=== PATIENT | male | born 1945 | race Caucasian/White ===

== ENCOUNTER 2017-06-06 14:15 | Emergency (ER) | payer MEDICARE ==
[~2017-06-06] VITALS: Ht 177.8 cm; Wt 84.7 kg
[2017-06-06 14:16] VITALS: BP 228/109; PULSE 73; RESP 18; TEMP 98.4; O2SAT 98
--- NOTE | 2017-06-06 14:35 | PD ---
HPI Chief Complaint: Injury Time Seen by Provider: 14:35 Travel History International Travel<30 days: No (109) Contact w/Intl Traveler<30days: No Traveled to known affect area: No History of Present Illness HPI 72 yo M complains of left wrist pain for about 1 day. Yesterday after using a long handled saw he developed pain which worsened overnight. Swelling and redness gradually increased. No fever. About 10 days prior his dog scratched the forearm of the left arm. Timing constant. Pt also notes incidental BP elevation. He has been compliant with metoprolol. PFSH Past Medical History Hx Anticoagulant Therapy: Yes (PLAVIX) Cerebrovascular Accident: Yes Social History Tobacco Use: No Allergies-Medications (Allergen,Severity, Reaction): Coded Allergies: No Known Allergies (Unverified , 06/06/17) Reported Meds & Prescriptions Reported Meds & Active Scripts Active Augmentin (Amoxicillin-Clavulanate) 875-125 Mg Tab 1 Tab PO BID 7 Days Reported Ketoconazole Topical 2% Cream 1 Applic TOPICAL DAILY Mupirocin Topical (Mupirocin) 2 % Oint 1 Applic TOPICAL BID Aspirin 81 Mg Chew 81 Mg CHEW DAILY Clopidogrel (Clopidogrel Bisulfate) 75 Mg Tab 75 Mg PO DAILY Benazepril (Benazepril HCl) 20 Mg Tab 20 Mg PO DAILY Omeprazole 20 Mg Tab 20 Mg PO DAILY Simvastatin 20 Mg Tab 20 Mg PO DAILY Metoprolol Tartrate 25 Mg Tab 25 Mg PO BID Review of Systems Except as stated in HPI: all other systems reviewed are Neg General / Constitutional: No: Fever Skin: Positive Lesions Physical Exam Narrative GENERAL: 72 yo M, WNWD, NAD SKIN: Warm and dry. HEAD: Atraumatic. Normocephalic. EYES: Pupils equal and round. No scleral icterus. No injection or drainage. ENT: No nasal bleeding or discharge. Mucous membranes pink and moist. NECK: Trachea midline. No JVD. CARDIOVASCULAR: Regular rate and rhythm. RESPIRATORY: No accessory muscle use. Clear to auscultation. Breath sounds equal bilaterally. GASTROINTESTINAL: Swelling, erythema, TTP about DRUJ and hand of LUE. 2+ radial artery pulse bilaterally. No gross deformity otherwise. MUSCULOSKELETAL: Extremities without clubbing, cyanosis, or edema. No obvious deformities. NEUROLOGICAL: Awake and alert. No obvious cranial nerve deficits. Motor grossly within normal limits. Five out of 5 muscle strength in the arms and legs. Normal speech. PSYCHIATRIC: Appropriate mood and affect; insight and judgment normal. Data Data Last Documented VS Vital Signs Date Time Temp Pulse Resp B/P (MAP) Pulse Ox O2 Delivery O2 Flow Rate FiO2 06/06/17 15:52 06/06/17 15:35 68 98 06/06/17 14:16 98.4 18 VS reviewed; repeat BP 197/97 Orders Orders Wrist, Complete (Gfs4cmt) (06/06/17 14:35) Ice/Cold Pack (06/06/17 14:35) Clindamycin (Cleocin) (06/06/17 14:45) Clonidine (Catapres) (06/06/17 14:45) MDM Medical Decision Making Medical Screen Exam Complete: Yes Emergency Medical Condition: Yes Differential Diagnosis cellulitis, gout, arthritis, abscess, osteomyelitis, fracture Narrative Course Last 24 hours Impressions Wrist X-Ray 06/06/17 1435 Signed Impressions: Service Date/Time: Tuesday, June 06, 2017 14:42 - CONCLUSION: Soft tissue swelling and degenerative changes are noted without obvious acute fracture. Marshall Mcneal MD Augmentin script. BP improved after clonidine. 197/97. Return precautions discussed. Diagnosis Primary Impression: Cellulitis Qualified Codes: L03.114 - Cellulitis of left upper limb Additional Impressions: Wrist sprain Qualified Codes: S63.502A - Unspecified sprain of left wrist, initial encounter Hypertension Qualified Codes: I10 - Essential (primary) hypertension Referrals: Primary Care Physician 2 days Additional Instructions: You have a choice when it comes to health care, and we are glad that you chose [facility]. Hopefully, we have met your expectations on today's visit. You are welcome to return to [facility] at any time, as we are committed to meeting the health care needs of our community. Med/Other Pt SpecificInfo: Prescription(s) given Scripts Amoxicillin-Clavulanate (Augmentin) 875-125 Mg Tab 1 TAB PO BID for Infection for 7 Days, #14 TAB 0 Refills Prov: John Britt MD 06/06/17 Disposition: 01 DISCHARGE HOME Condition: Stable John Britt MD Jun 06, 2017 14:35
[2017-06-06] MEDS ORDERED: KETO2CRE TOPICAL (14:42)
[2017-06-06] MEDS ORDERED: ASPI81CH CHEW (14:42)
[2017-06-06] MEDS ORDERED: METO25TA3 PO (14:42)
[2017-06-06] MEDS ORDERED: CLOP75TA PO (14:42)
[2017-06-06] MEDS ORDERED: SIMV20TA PO (14:42)
[2017-06-06] MEDS ORDERED: OMEP20TA PO (14:42)
[2017-06-06] MEDS ORDERED: MUPI2OIN TOPICAL (14:42)
[2017-06-06] MEDS ORDERED: BENA20TA PO (14:42)
[2017-06-06] MEDS ORDERED: cloNIDine HCL 0.1 MG TAB PO ONE (14:45)
[2017-06-06] MEDS ORDERED: CLINDAMYCIN 150 MG CAP PO ONE (14:45)
--- NOTE | 2017-06-06 15:06 | RADRPT ---
EXAM DATE/TIME: 06/06/2017 14:42 [facility] COMPARISON: No previous studies available for comparison. INDICATIONS : Left wrist pain post fall. MEDICAL HISTORY : Previous left wrist fracture SURGICAL HISTORY : None. ENCOUNTER: Initial ACUITY: 4 - 6 days PAIN SCORE: 7/10 LOCATION: Left posterior wrist FINDINGS: There are degenerative changes at the thumb basal joint and dorsal soft tissue swelling. Some fragmen tation of bone is present at the base of the first metacarpal which is felt to be non-acute. CONCLUSION: Soft tissue swelling and degenerative changes are noted without obvious acute fracture. Marshall Mcneal MD on June 06, 2017 at 15:05 Board Certified Radiologist. This report was verified electronically.
[2017-06-06 15:35] VITALS: BP 197/97; PULSE 68; O2SAT 98
[2017-06-06] MEDS ORDERED: AUGM875T3 PO (15:53)
== END 2017-06-06 15:59 | disposition home or self-care (01) ==
LOC: PHED 14:15
DX: L03.114 Cellulitis of left upper limb (principal); S63.502A Unspecified sprain of left wrist, initial encounter; I10 Essential (primary) hypertension; Z86.73 Personal history of transient ischemic attack (TIA), and cerebral infarction without residual deficits; Z79.01 Long term (current) use of anticoagulants; X50.3XXA Overexertion from repetitive movements, initial encounter; Y99.8 Other external cause status
CPT/HCPCS: 73110; 99283